=== PATIENT | female | born 1945 ===

== ENCOUNTER 2017-01-23 09:44 | Emergency (ER) | payer OTHER ==
[2017-01-23 09:49] VITALS: TEMP 98.4
[2017-01-23] MEDS ORDERED: Sodium Chloride 0.9% 500 ML IV STA (10:43)
--- NOTE | 2017-01-23 11:09 | RAD ---
PROCEDURE: CHEST RADIOGRAPH, 1 VIEW HISTORY: dizzy COMPARISON: Comparison made with prior chest radiograph 11/14/2011 FINDINGS: LUNGS: Poor inspiration with low lung volumes, crowded bronchovascular markings and mild bibasilar atelectasis. . PLEURA: No pneumothorax or pleural fluid seen. CARDIOVASCULAR: Heart size is upper limits normal/ borderline OSSEOUS STRUCTURES: Minor multilevel degenerative spondylosis of the thoracic spine. Mild DJD both shoulders left greater than right VISUALIZED UPPER ABDOMEN: Normal. OTHER FINDINGS: None. IMPRESSION: Poor inspiration with low lung volumes, crowded bronchovascular markings and mild bibasilar atelectasis. .
--- NOTE | 2017-01-23 11:33 | CT ---
PROCEDURE: CT scan brain dated 01/23/2017 HISTORY: Dizziness. COMPARISON: None available. TECHNIQUE: Axial computed tomography images were obtained through the head/brain without intravenous contrast. Radiation dose: Total exam DLP = 775.82 mGy-cm. This CT exam was performed using one or more of the following dose reduction techniques: Automated exposure control, adjustment of the mA and/or kV according to patient size, and/or use of iterative reconstruction technique. FINDINGS: HEMORRHAGE: No acute parenchymal, subarachnoid nor extra-axial hemorrhage. BRAIN: No evidence of large infarct. VENTRICLES: Unremarkable. No hydrocephalus. CALVARIUM: There are no acute calvarial fracture seen. Note made of tiny radiopaque densities within the right parietal scalp near the posterior convexity which could represent scalp calcifications or radiopaque foreign bodies. PARANASAL SINUSES: Unremarkable as visualized. No significant inflammatory changes. MASTOID AIR CELLS: Unremarkable as visualized. No inflammatory changes. OTHER FINDINGS: None. IMPRESSION: No acute intracranial hemorrhage.
[2017-01-23] MEDS ORDERED: Sodium Chloride 0.9% 500 ML IV ONE (11:55)
[2017-01-23 11:57] LABS: BASO # 0.1 K/uL (0.0-0.2); EOS # 0.1 K/uL (0.0-0.7); EOS % 0.8 % (0.0-4.0); HEMATOCRIT 43.1 % (34.0-47.0); LYMPH # 2.1 K/uL (1.0-4.3); LYMPH % 31.2 % (20.0-40.0); MEAN CELL VOLUME 87.7 fL (81.0-99.0); MEAN CORPUSCULAR HEMOGLOBIN 29.1 pg (27.0-31.0); MEAN CORPUSCULAR HGB CONC 33.2 g/dL (33.0-37.0); MEAN PLATELET VOLUME 7.9 fL (7.2-11.7); MONO # 0.4 K/uL (0.0-0.8); MONO % 5.5 % (0.0-10.0); NRBC % 0.1 % (0.0-2.0); RED CELL DISTRIBUTION WIDTH 13.9 % (11.5-14.5); WHITE BLOOD COUNT 6.7 K/uL (4.8-10.8)
[2017-01-23 12:01] VITALS: O2SAT 99
--- NOTE | 2017-01-23 12:01 | C.PDOC ---
History Of Present Illness 71 y/o female with Hx of Vertigo presents to ED sent for evaluation of feeling dizzy and lightheaded with associated nausea since Monday. Patient states she "doesn't feel good" and has tried to see PMD but is not available. Patient denies fever, vomiting,headache, chest pain or any other complaints at this time. Time Seen by Provider: 01/23/17 10:11 Chief Complaint (Nursing): Dizziness/Lightheaded History Per: Patient History/Exam Limitations: no limitations Onset/Duration Of Symptoms: Days Current Symptoms Are (Timing): Still Present Past Medical History Reviewed: Historical Data, Nursing Documentation, Vital Signs Vital Signs: Last Vital Signs Temp 98.4 F 01/23/17 13:20 Pulse 71 01/23/17 13:20 Resp 18 01/23/17 13:20 BP 137/75 01/23/17 13:20 Pulse Ox 99 01/23/17 13:20 - Medical History PMH: Asthma Family History: States: No Known Family Hx - Social History Hx Tobacco Use: No Hx Alcohol Use: No Hx Substance Use: No - Immunization History Hx Tetanus Toxoid Vaccination: No Hx Influenza Vaccination: Yes Hx Pneumococcal Vaccination: Yes Review Of Systems Except As Marked, All Systems Reviewed And Found Negative. Constitutional: Negative for: Fever, Chills Cardiovascular: Negative for: Chest Pain Respiratory: Negative for: Shortness of Breath Gastrointestinal: Positive for: Nausea. Negative for: Vomiting, Abdominal Pain , Diarrhea Neurological: Positive for: Weakness, Dizziness. Negative for: Headache Physical Exam - Physical Exam Appears: Non-toxic, No Acute Distress Skin: Normal Color, Warm, Dry, No Rash Head: Atraumatic, Normacephalic Eye(s): bilateral: Other (Horizontal Nystagmus) Oral Mucosa: Moist Neck: Normal ROM, Supple Chest: Symmetrical Cardiovascular: Rhythm Regular Respiratory: Normal Breath Sounds, No Rales, No Rhonchi, No Wheezing Gastrointestinal/Abdominal: Soft, No Tenderness, No Guarding, No Rebound Extremity: Normal ROM Neurological/Psych: Oriented x3, Normal Speech, Normal Motor, Normal Sensation, Other (No focal deficits) Gait: Steady ED Course And Treatment - Laboratory Results Result Diagrams: 01/23/17 11:53 01/23/17 11:53 ECG Interpretation: No Acute Changes Rate From EC (bpm) O2 Sat by Pulse Oximetry: 99 (RA) Pulse Ox Interpretation: Normal - CT Scan/US Head w/o contrast Other Rad Studies (CT/US): Interpreted By Me, Read By Radiologist CT/US Interpretation: PROCEDURE: CT scan brain dated 01/23/2017. HISTORY: Dizziness. COMPARISON: None available. TECHNIQUE: Axial computed tomography images were obtained through the head/brain without intravenous contrast. Radiation dose: Total exam DLP = 775.82 mGy-cm. This CT exam was performed using one or more of the following dose reduction techniques: Automated exposure control, adjustment of the mA and/or kV according to patient size, and/ or use of iterative reconstruction technique. FINDINGS: HEMORRHAGE: No acute parenchymal, subarachnoid nor extra-axial hemorrhage. BRAIN: No evidence of large infarct. VENTRICLES: Unremarkable. No hydrocephalus. CALVARIUM: There are no acute calvarial fracture seen. Note made of tiny radiopaque densities within the right parietal scalp near the posterior convexity which could represent scalp calcifications or radiopaque foreign bodies. PARANASAL SINUSES : Unremarkable as visualized. No significant inflammatory changes. MASTOID AIR CELLS: Unremarkable as visualized. No inflammatory changes. OTHER FINDINGS : None. IMPRESSION: No acute intracranial hemorrhage. Medical Decision Making Medical Decision Making: Plan: * CT scan * full work up * IV fluids * * On re-evaluation patient feels better and is able to go home. She has no neuro deficit and is ambulating in ED with a steady gait. Disposition - Disposition Disposition: HOME/ ROUTINE Disposition Time: 13:00 Condition: STABLE Additional Instructions: Follow up with PMD within 1-2 days. Return to ED if feel worse. Prescriptions: Nitrofurantoin Macrocrystals [Macrobid] 1 cap PO BID #14 cap Meclizine [Meclizine*] 25 mg PO Q6 #30 tab Instructions: Urinary Tract Infection in Women (ED), Vertigo (ED) Forms: [facility] (Albanian), Work Excuse - Clinical Impression Clinical Impression: Vertigo, UTI (urinary tract infection) - Scribe Statement The provider has reviewed the documentation as recorded by the Tyroneibchristine Blanco All medical record entries made by the Scribe were at my direction and personally dictated by me. I have reviewed the chart and agree that the record accurately reflects my personal performance of the history, physical exam, medical decision making, and the department course for this patient. I have also personally directed, reviewed, and agree with the discharge instructions and disposition.
[2017-01-23 12:06] LABS: CHLORIDE 104 mmol/L (98-107); SODIUM 139 mmol/L (132-148)
[2017-01-23 12:07] LABS: POTASSIUM 3.9 mmol/L (3.6-5.2)
[2017-01-23 12:09] LABS: ALB/GLOB RATIO 1.1 (1.0-2.1); ALKALINE PHOSPHATASE 102 U/L (38-126); ALT/SGPT 26 U/L (9-52); AST/SGOT 22 U/L (14-36); BILIRUBIN,TOTAL 0.5 mg/dL (0.2-1.3); BLOOD UREA NITROGEN 17 mg/dL (7-17); CARBON DIOXIDE 25 mmol/L (22-30); GFR AFRICAN-AMERICAN > 60; GLUCOSE,RANDOM 85 mg/dL (65-105); TOTAL PROTEIN 6.9 g/dL (6.3-8.3)
[2017-01-23 12:12] LABS: RBC URINE 22 /hpf (0-3); URINE BACTERIA RARE (<OCC); URINE BILIRUBIN NEGATIVE (NEGATIVE); URINE BLOOD 2+ (NEGATIVE); URINE COLOR Yellow (YELLOW); URINE GLUCOSE (UA) NORMAL (Normal); URINE KETONE TRACE mg/dL (NEGATIVE); URINE LEUKOCYTE ESTERASE 2+ Leu/uL (Negative); URINE PROTEIN NEGATIVE (NEGATIVE); URINE UROBILINOGEN NORMAL mg/dL (0.2-1.0); WBC URINE 11 /hpf (0-5)
[2017-01-23 13:21] VITALS: BP 137/75; PULSE 71; RESP 18
--- NOTE | 2017-01-27 16:13 | CARD ---
APPROVED REPORT EKG Measurement Heart [id number] NJ 130P-11 [id number] <Conclusion> Normal sinus rhythm Normal ECG
== END 2017-01-23 13:20 | disposition home or self-care (01) ==
LOC: C.ER 09:44
DX: R42 Dizziness and giddiness (principal); N39.0 Urinary tract infection, site not specified
CPT/HCPCS: 70450; 71010; 80053; 81001; 82550; 82553; 84484; 85025; 85610; 85730; 99285; J7040